=== PATIENT | male | born 1965 | race Caucasian/White ===

== ENCOUNTER 2016-12-13 19:34 | Emergency (ER) | payer SELFPAY ==
[2016-12-14 00:44] VITALS: BP 142/87
== END 2016-12-14 00:44 | disposition home or self-care (01) ==
LOC: ED 19:34
PROC: 3E023NZ Introduction of Analgesics, Hypnotics, Sedatives into Muscle, Percutaneous Approach (ICD-10-PCS; principal; 2016-12-14)
DX: S33.5XXA Sprain of ligaments of lumbar spine, initial encounter (principal); X50.0XXA Overexertion from strenuous movement or load, initial encounter; Y92.69 Other specified industrial and construction area as the place of occurrence of the external cause
CPT/HCPCS: J1885